=== PATIENT | female | born 1985 | race Caucasian/White ===

== ENCOUNTER 2021-12-30 10:12 | Emergency (ER) | payer OTHER, SELFPAY ==
--- NOTE | 2021-12-30 10:13 | ED.GENADULT ---
HPI - General Adult General Chief complaint: Neck Pain/Injury Stated complaint: Neck/Left Shoulder Pain Time Seen by Provider: 12/30/21 10:13 Source: patient Mode of arrival: ambulatory Limitations: no limitations History of Present Illness HPI narrative: 36-year-old female patient presents to the [facility] with complaints of neck and shoulder pain x5 days. Patient states she flew to [place] on Saturday to see some family and states that she was holding some bags and holding some luggage later on that evening noticed that her neck was little stiff and as the days went on stiffness is gotten increasingly worse. Patient states she has noticed that 800 mg of ibuprofen has worked better than the Tylenol and she tried some Epson salt warm baths and a little bit of heat and ice the area continues to have issues with range of motion of the neck and pain to the scapular area. Denies any specific injury that she is aware of. Denies any numbness or tingling down the upper extremities. Related Data Allergies Allergy/AdvReac Type Severity Reaction Status Date / Time No Known Allergies Allergy Verified 12/30/21 10:28 Review of Systems Review of Systems: CONSTITUTIONAL: Denies fever, chills, or sweats. EYES: Denies visual changes, redness, or discharge. ENT: Denies rhinorrhea, congestion, sore throat, or otalgia. CARDIOVASCULAR: Denies chest pain, palpitations, or edema. RESPIRATORY: Denies cough or dyspnea. GASTROINTESTINAL: Denies abdominal pain, nausea, vomiting, or diarrhea. GENITOURINARY: Denies dysuria or hematuria. SKIN: Denies rash or itching. MUSCULOSKELETAL: Denies back pain, joint pain, or myalgia. Positive neck and shoulder pain x5 days NEUROLOGIC: Denies headache, numbness, or weakness. PSYCHIATRIC: Denies anxiety or depression. PMFSH Comments At the time of my signature I agree with nursing past medical history, surgical, social, and family history. There is no relevant family history pertinent to the presenting complaint. Exam Narrative: GENERAL: Well-appearing, well-nourished, and in no acute distress. HEAD: Normocephalic, atraumatic. EYES: PERRLA and EOMI. ENT: Nares clear, no rhinorrhea or epistaxis. Mucous membranes moist. NECK: Supple, no lymphadenopathy. No surface trauma, soft tissue and muscle tenderness and spasm noted noted to palpation along the scapula area. Trachea midline. No subq emphysema or crepitus. No diogenes tenderness, step-offs or deformity to firm Palpation at posterior midline. FROM with limitation and pain with flexion, extension,Lateral bending, rotation, no pain with axial load. CHEST: Clear to auscultation. No respiratory distress. HEART: Regular rate and rhythm. No murmur heard. Normal peripheral pulses. ABDOMEN: Soft, nontender, nondistended, normal active bowel sounds. EXTREMITIES: Normal range of motion. No edema. SKIN: Warm, dry, no rash. NEURO: No focal deficits. Alert and oriented x3. Course Course Level of Care: Express Care Visit Vital Signs Vital signs: Vital Signs Temperature 37.1 C 12/30/21 10:20 Pulse Rate 81 12/30/21 10:20 Respiratory Rate 14 12/30/21 10:20 Blood Pressure 91/64 L 12/30/21 10:20 Pulse Oximetry 99 12/30/21 10:20 Temperature 37.1 C 12/30/21 10:20 Pulse Rate 81 12/30/21 10:20 Respiratory Rate 14 12/30/21 10:20 Blood Pressure 91/64 L 12/30/21 10:20 Pulse Oximetry 99 12/30/21 10:20 Vital signs reviewed Medical Decision Making Differential Diagnosis Differential Diagnosis: Differential diagnosis: Cervical spine injury, muscle strain, spasm, torticollis, ligament injury, fracture, subluxation. Discussed with patient that most likely she pulled a muscle now and appears that she has some muscle spasms along bilateral scapular areas. Can urged her to continue doing the 800 mg ibuprofen 2-3 times a day and I will also prescribe her a muscle relaxant. Encouraged her to do gentle stretching exercises, massage and heat to the area to hel
[2021-12-30 10:20] VITALS: BP 91/64; PULSE 81; RESP 14; TEMP 37.1; O2SAT 99
== END 2021-12-30 10:45 | disposition home or self-care (01) ==
PROVIDERS: Emergency Provider Nurse Practitioner Family; PCP Physician Assistant
DX: S16.1XXA Strain of muscle, fascia and tendon at neck level, initial encounter (principal); X50.1XXA Overexertion from prolonged static or awkward postures, initial encounter
CPT/HCPCS: 99213; G0463

== ENCOUNTER 2022-04-09 21:18 | Emergency (ER) | payer OTHER, SELFPAY ==
[2022-04-09 21:30] VITALS: BP 119/85; PULSE 107; RESP 18; TEMP 36.9; O2SAT 100
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
[2022-04-09 22:17] LABS: Basophils Absolute Auto 0.04 K/mm3 (0.00-0.10); Basophils Percent Auto 0.5 % (0.0-1.0); Eosinophils Absolute Auto 0.06 K/mm3 (0.02-0.50); Eosinophils Percent Auto 0.7 % (1.0-6.0); Hematocrit 36.6 % (35.0-49.0); Hemoglobin 12.1 g/dL (12.0-15.0); Immature Granulocyte Absolute 0.02 K/mm3 (0.00-0.00); Immature Granulocyte Percent A 0.2 % (0.0-0.0); Lymphocytes Absolute Auto 1.68 K/mm3 (1.10-4.50); Mean Corpuscular HGB Conc 33.1 g/dL (32.0-36.0); Mean Corpuscular Hemoglobin 33.4 pg (27.0-31.0); Mean Corpuscular Volume 101.1 fL (78.0-102.0); Mean Platelet Volume 8.8 fl (9.2-11.8); Monocytes Absolute Auto 0.58 K/mm3 (0.10-0.90); Monocytes Percent Auto 6.9 % (2.0-11.0); Neutrophils Percent Auto 71.7 % (50.0-70.0); Platelet Count Result 318 K/mm3 (150-420); Red Blood Count 3.62 M/mm3 (4.20-5.40); Red Cell Distribution Width 11.9 % (11.6-14.4); White Blood Count 8.4 K/mm3 (4.8-10.8)
[2022-04-09 22:22] LABS: Add Urine Microscopic? YES; Appearance Urine Clear (Clear); Bilirubin Urine Negative (Negative); Blood Urine Negative (Negative); Color Urine Light Yellow (Yellow); Glucose Urine UA Negative (Negative); Ketones Urine Negative (Negative); Leukocyte Esterase Ur Trace LEU/UL (Negative); Nitrate Urine Negative (Negative); Protein Urine Negative (Negative); Urobilinogen Urine 0.2 mg/dL (0.2-1.0); pH Urine 6.5 (5.0-8.0)
[2022-04-09 22:29] LABS: Pregnancy On Board Control Positive; Urine Pregnancy Test Negative
[2022-04-09 22:30] LABS: Bacteria Urine Trace /hpf; RBC Urine 0-2 /hpf (0-2); Squamous Epithelial Cell Urine Few /hpf (Few); WBC Urine 0-3 /hpf (0-3)
[2022-04-09 22:34] LABS: Amphetamine Screen Urine Positive (Negative); Barbiturate Screen Urine Negative (Negative); Benzodiazepines Screen Urine Negative (Negative); Cannabinoid Screen Urine Positive (Negative); Cocaine Screen Urine Positive (Negative); Methadone Screen Urine Negative (Negative); Opiate Screen Urine Negative (Negative); Phencyclidine Screen Urine Negative (Negative)
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
[2022-04-09 22:43] LABS: Alanine Aminotransferase 18 U/L (14-59); Albumin Level 3.9 g/dL (3.4-5.0); Alkaline Phosphatase 62 U/L (46-116); Anion Gap 9 mmol/L (8-16); Aspartate Amino Transferase 14 U/L (15-37); Bilirubin,Total 0.4 mg/dL (0.00-1.00); Blood Urea Nitrogen 11 mg/dL (7-18); Calcium 8.8 mg/dL (8.5-10.1); Carbon Dioxide 26 mmol/L (21-32); Chloride 102 mmol/L (98-108); Estimated CRCL calculation 57 ml/min; Estimated Glomerular Filt Rate > 60; Glucose 94 mg/dL (70-99); Osmolality Calculated 283 mOsm/kg (285-295); Potassium 3.7 mmol/L (3.5-5.1); Sodium 137 mmol/L (136-145); Thyroid Stimulating Hormone 1.62 uIU/mL (0.36-3.74); Total Protein 6.8 g/dL (6.4-8.2)
[2022-04-09 22:47] LABS: Acetaminophen < 2 ug/mL (10-30); Ethanol < 3 mg/dL (0-6)
[2022-04-09 22:54] LABS: SARS-CoV-2 RNA PCR Negative (Negative)
--- NOTE | 2022-04-09 23:08 | PC.NURSE ---
Pt is calm and cooperative, resting/dozing in chair and watching TV, pt under continuous observation via monitor and sitter protocol. Awaiting Mehran from [facility] for evaluation. Pt updated on POC.
--- NOTE | 2022-04-10 01:24 | PC.NURSE ---
Mehran from [facility] talking c pt for evaluation. Pt cooperative c care.
--- NOTE | 2022-04-10 02:23 | PC.NURSE ---
Safety plan discussed c pt per mental health counselor loni Laurent/adamaris instructions given for pt to f/u on o/p basis c her counselors, pt agreeable to POC.
[2022-04-10 02:30] VITALS: BP 110/74; PULSE 87; RESP 20; TEMP 36.4; O2SAT 100
== END 2022-04-10 02:48 | disposition home or self-care (01) ==
PROVIDERS: Emergency Provider Emergency Medicine
DX: F32.9 Major depressive disorder, single episode, unspecified (principal); F19.90 Other psychoactive substance use, unspecified, uncomplicated; Z20.822 Contact with and (suspected) exposure to COVID-19
CPT/HCPCS: 36415; 80053; 80307; 81001; 81025; 84443; 85025; 99284; C9803; U0003; U0005

== ENCOUNTER 2023-06-16 11:01 | Emergency (ER) | payer OTHER, SELFPAY ==
--- NOTE | ~2023-06-16 | XR_ITS ---
XR chest 2V DATE: 06/16/2023 11:27 INDICATION: Right chest pain radiating to right back. Shortness of breath. Fever. History of smoking. TECHNIQUE: 2 views COMPARISON: None FINDINGS: Normal heart size. No hilar or mediastinal enlargement. The lungs are hyperinflated but haylee ar of infiltrate or consolidation. No pleural effusion or pulmonary vascular congestion or pneumothor ax. Mild thoracic scoliosis. IMPRESSION: Bilateral hyperinflation; otherwise no active cardiopulmonary disease Reviewed, dictated and finalized at location A. IMPRESSION: Bilateral hyperinflation; otherwise no active cardiopulmonary disea se
[2023-06-16 11:01] VITALS: BP 114/81; PULSE 100; RESP 16; TEMP 36.5; O2SAT 99
--- NOTE | 2023-06-16 11:12 | ECG_ITS ---
Measurements Intervals [place] Rate: 88 P: -89 VA: 118 QRS: 65 QRSD: 94 T: 46 QT: 370 QTc: 450 Interpretive Statements ECTOPIC ATRIAL RHYTHM ABNORMAL ECG NO PREVIOUS ECG AVAILABLE FOR COMPARISON Electronically Signed On 06-17-2023 9:31:24 CDT by Dimitris Bell M.D.
--- NOTE | 2023-06-16 11:18 | ED.CHESTPAIN ---
HPI - Chest Pain General Chief Complaint: Chest Pain Stated Complaint: pain with breathing Time Seen by Provider: 06/16/23 11:12 Source: patient Mode of arrival: ambulatory Limitations: no limitations History of Present Illness HPI narrative: patient is a 37-year-old female with upper chest pain on the left and more so on the right for the past day. She has been having it on and off however for the past week. She has a plan to see her primary doctor in the next week. She was moving some lumbar yesterday and this appears to be worse after moving heavy lumber. Pain is on movement. No other chest pain symptoms. complaint: chest pain Onset (ago): day(s) Timing of current episode: constant, increasing and still present Prior episodes: Yes Onset: during exertion Pain location: left chest and right chest Pain radiation: none Severity: moderate Pain scale (0-10): 5 Quality: sharp Relieving factors: rest Exacerbating factors: movement Treatment prior to arrival: none Risk Factors Coronary artery disease risk factors: none Thoracic aortic dissection risk factors: none Related Data On Oral Contraceptives: No Allergies Allergy/AdvReac Type Severity Reaction Status Date / Time No Known Allergies Allergy Verified 12/30/21 10:28 Review of Systems Review of Systems: All systems reviewed & are unremarkable except as noted in HPI and below Constitutional: Constitutional: Reports no additional constitutional complaints Eyes: Eyes: Reports no additional eye complaints ENT: Reports system reviewed and no additional complaints, except as documented Cardiovascular: Cardiovascular: Reports no additional cardiovascular complaints Respiratory: Respiratory: Reports no additional respiratory complaints Gastrointestinal: Gastrointestinal: Reports no additional gastrointestinal complaints Genitourinary: Genitourinary: Reports no additional female genitourinary complaints Musculoskeletal: Musculoskeletal: Reports no additional musculoskeletal complaints Integumentary/Breasts: Skin/Breast: Reports system reviewed and no additional complaints, except as docu Neurologic: Reports system reviewed and no additional complaints, except as documented Psychiatric: Psychiatric: Reports no additional psychiatric complaints Endocrine: Endocrine: Reports no additional endocrine complaints Hematologic/Lymphatic: Hematologic/Lymphatic: Reports no additional hematologic/lymphatic complaints Allergic/Immunologic: Allergic/Immunologic: Reports no additional allergic/immunologic complaints [facility] Surgical History H/O dilation and curettage Social History Social History Tobacco type: e-cigarettes/vaping Substance use type: marijuana Exam Const: General: healthy appearing Nutritional Appearance: well nourished Orientation/consciousness: patient oriented x3 HENMT: Head: normal to inspection Ears: external ears normal Face/Nose/Sinus: Normal external nose present Eyes: Conjunctivae: conjunctivae normal Pupils: Equal, round and reactive pupils present EOM: EOMs intact bilaterally Neck: Neck: normal visual inspection Chest: Chest palpation & inspection: normal inspection of the chest Resp: Effort & Inspection: normal respiratory effort Auscultation: clear to auscultation bilaterally Cardio: Rate: regular rate Rhythm: regular rhythm Heart sounds: no murmurs GI: Inspection: non-distended GI Palp: Yes Soft to palpation, No Tenderness to palpation present (GI), No Guarding due to palpation present (GI) and No Rigid due to palpation : General: Yes bladder normal to palpation Back/Spine/Pelvis: Back: no CVA tenderness Skin: General skin exam: normal color Rashes: no rashes Wounds: no wounds Neuro: General: patient oriented x3 Cranial nerves: Yes Nystagmus not present Speech: normal speech Extre
[2023-06-16] MEDS: KETOROLAC (*BKC) 60 MG/2 ML VIAL IM (11:26)
[2023-06-16 11:35] LABS: Basophils Absolute Auto 0.02 K/mm3 (0.00-0.10); Basophils Percent Auto 0.2 % (0.0-1.0); Eosinophils Absolute Auto 0.07 K/mm3 (0.02-0.50); Eosinophils Percent Auto 0.9 % (1.0-6.0); Hematocrit 34.5 % (35.0-49.0); Immature Granulocyte Absolute 0.03 K/mm3 (0.00-0.00); Immature Granulocyte Percent A 0.4 % (0.0-0.0); Lymphocytes Absolute Auto 1.05 K/mm3 (1.10-4.50); Lymphocytes Percent Auto 13.1 % (18.0-42.0); Mean Corpuscular HGB Conc 31.9 g/dL (32.0-36.0); Mean Corpuscular Hemoglobin 32.5 pg (27.0-31.0); Mean Corpuscular Volume 102.1 fL (78.0-102.0); Mean Platelet Volume 8.4 fl (9.2-11.8); Monocytes Percent Auto 7.5 % (2.0-11.0); Neutrophils Absolute Auto 6.3 K/mm3 (1.7-7.2); Neutrophils Percent Auto 77.9 % (50.0-70.0); Platelet Count Result 415 K/mm3 (150-420); Red Blood Count 3.38 M/mm3 (4.20-5.40); Red Cell Distribution Width 12.3 % (11.6-14.4)
[2023-06-16 11:54] LABS: Alanine Aminotransferase 11 U/L (14-59); Albumin Level 3.4 g/dL (3.4-5.0); Alkaline Phosphatase 90 U/L (46-116); Aspartate Amino Transferase < 10 U/L (15-37); Bilirubin,Total 0.3 mg/dL (0.00-1.00); Blood Urea Nitrogen 9 mg/dL (7-18); Carbon Dioxide 26 mmol/L (21-32); Chloride 103 mmol/L (98-108); Estimated CRCL calculation 72 ml/min; Estimated Glomerular Filt Rate > 60; Glucose 88 mg/dL (70-99); Lipase 72 U/L (16-77); Potassium 3.3 mmol/L (3.5-5.1); Total Protein 7.3 g/dL (6.4-8.2)
[2023-06-16 11:57] LABS: Troponin I < 4.0 ng/L (0.00-60.4)
[2023-06-16 12:00] VITALS: BP 115/78; PULSE 92; RESP 18; O2SAT 100
[2023-06-16 12:27] LABS: Anion Gap 9 mmol/L (8-16); Osmolality Calculated 283 mOsm/kg (285-295); Sodium 138 mmol/L (136-145)
--- NOTE | 2023-06-16 12:39 | PC.NURSE ---
Pt up to bathroom for urine specimen.
[2023-06-16 13:06] LABS: Bilirubin Urine Negative (Negative); Blood Urine 1+ (Negative); Color Urine Light Yellow (Yellow); Glucose Urine UA Negative (Negative); Ketones Urine Negative (Negative); Leukocyte Esterase Ur 1+ LEU/UL (Negative); Nitrate Urine Negative (Negative); Protein Urine Negative (Negative); Specific Grav Ur 1.025 (1.010-1.020); Urobilinogen Urine 0.2 mg/dL (0.2-1.0)
[2023-06-16] MEDS: POTASSIUM CHLORIDE 20 MEQ ER TABLET PO (13:08)
[2023-06-16 13:13] LABS: Add Urine Microscopic? YES; Amorphous Sediment Urine Few; Appearance Urine Slightly Cloudy (Clear); Bacteria Urine 2+ /hpf; Squamous Epithelial Cell Urine Many /hpf (Few)
[2023-06-16 13:14] LABS: Mucus Urine Heavy /lpf; Pregnancy On Board Control Positive; Urine Pregnancy Test Negative
[2023-06-16 13:34] VITALS: BP 112/80; PULSE 91; RESP 16; O2SAT 98
--- NOTE | 2023-06-18 12:26 | PC.NURSE ---
FINAL URINE CULTURE REPORT: NO GROWTH , NO FURTHER ACTION OR TREATMENT NEEDED.
== END 2023-06-16 13:36 | disposition home or self-care (01) ==
PROVIDERS: Emergency Provider Emergency Medicine; PCP Physician Assistant
DX: S29.011A Strain of muscle and tendon of front wall of thorax, initial encounter (principal); N30.01 Acute cystitis with hematuria; X50.0XXA Overexertion from strenuous movement or load, initial encounter; F17.290 Nicotine dependence, other tobacco product, uncomplicated; F12.90 Cannabis use, unspecified, uncomplicated
CPT/HCPCS: 36415; 71046; 80053; 81001; 81025; 83690; 84484; 85025; 87086; 87088; 93005; 96372; 99284; A9270; J1885

== ENCOUNTER 2024-06-20 17:42 | Emergency (ER) | payer MEDICAID, SELFPAY ==
--- NOTE | ~2024-06-20 | CT_ITS ---
EXAMINATION: CT abdomen pelvis w con DATE: 06/20/2024 19:07 INDICATION: Periumbilical abdominal pain/nausea/vomiting x2 days TECHNIQUE: Computed tomography (CT) of the abdomen and pelvis was performed with 100 mL Omnipaque-350 intravenous contrast. Automated exposure control and iterative reconstruction technique were employe d. The dose-length product was 159.93 mGy-cm. COMPARISON: None. FINDINGS: Lower thorax: Unremarkable Liver: Right lobe cyst. Subcentimeter right lobe hypodensity too small to characterize but likely rep resents a cyst or hemangioma. Biliary/Gallbladder: Gallbladder is normal. No bile duct dilation. Pancreas: No mass or duct dilation. Spleen: Normal. Adrenals:No mass. Kidneys: No suspicious mass, obstructing stone, or hydronephrosis. GI tract: No small or large bowel dilation. Appendix not confidently visualized due to the paucity of abdominal fat. No right lower quadrant inflammatory change to suggest appendicitis. Mesentery/Peritoneum: No ascites, mass, or free air. Retroperitoneum: No mass. Minimal atherosclerotic abdominal aortic and/or arterial calcifications. Pelvis: Pelvic organs are within normal limits. Retroverted uterus. 2.1 cm simple appearing right ova concha cyst. Soft Tissues: Soft tissues and body wall unremarkable. Bones: No acute osseous finding. IMPRESSION: No acute abdominopelvic process detected Reviewed, dictated and finalized at location K.
[2024-06-20 17:44] VITALS: BP 143/97; PULSE 87; RESP 18; TEMP 36.9; O2SAT 99
--- NOTE | 2024-06-20 17:54 | ED.ABDPAIN ---
HPI - Abdominal Pain General Chief Complaint: Abdominal Pain Stated Complaint: abdominal pain Time Seen by Provider: 06/20/24 17:43 Source: patient Mode of arrival: ambulatory Limitations: no limitations History of Present Illness HPI narrative: This is a 38-year-old female with no significant past medical history, who presents to the emergency department complaining of abdominal pain for the past week. She described pain as dull, rated 8/10 without radiation and now worsening. This is associated with nausea, though no vomiting or diarrhea. She states she has passed gas and stool without difficulty. The patient states she recently began having brownish vaginal discharge and spotting without other abnormal discharge. She denies recent trauma, fevers, chills, abnormal bleeding, chest pain, shortness of breath and has no other complaints at this time. Related Data Allergies Allergy/AdvReac Type Severity Reaction Status Date / Time No Known Allergies Allergy Verified 06/20/24 17:42 Review of Systems Review of Systems: All systems reviewed & are unremarkable except as noted in HPI and below PMFSH Past Medical History Medical History (Updated 06/20/24 @ 19:23 by Marco Antonio Lizama MD) PTSD (post-traumatic stress disorder) Surgical History Surgical History H/O dilation and curettage Social History Social History (Updated 06/20/24 @ 17:56 by Marco Antonio Lizama MD) Tobacco type: e-cigarettes/vaping Alcohol intake: current Substance use type: marijuana Exam Narrative: GENERAL: Well-developed, well-nourished, and in no acute distress. Appears uncomfortable HEAD: Normocephalic, atraumatic. EYES: PERRLA and EOMI. ENT: Nares clear, no rhinorrhea or epistaxis. Mucous membranes moist. Oropharynx without tonsillar hypertrophy exudate or other lesions. CHEST: Clear to auscultation. No respiratory distress. No wheezes rales or rhonchi HEART: Regular rate and rhythm. No murmur heard. Normal peripheral pulses. ABDOMEN: Soft, tender to palpation in the periumbilical and suprapubic regions, without rebound or guarding, nondistended, normal active bowel sounds. mild right CVA tenderness to palpation, no left CVA tenderness EXTREMITIES: Normal range of motion. No edema. SKIN: Warm, dry, no rash. NEURO: Alert and oriented x3. No focal deficit. Moving all 4 limbs spontaneously PSYCH: Normal mood and affect. Course Course Emergency Course: 18:43 - CBC demonstrates mild anemia with hemoglobin of 11.9 which appears to be the patient's baseline, but is otherwise unremarkable. chemistries unremarkable. Urinalysis demonstrates 3+ blood with 21-50 RBCs but is otherwise unremarkable, including the absence of bacteria. Urine test negative. The patient received half of the ordered morphine with appropriate affect. CT abdomen pelvis pending. Vital Signs Vital signs: Vital Signs Temperature 98.4 F 06/20/24 17:44 Pulse Rate 87 06/20/24 17:44 Respiratory Rate 18 06/20/24 17:44 Blood Pressure 143/97 H 06/20/24 17:44 Pulse Oximetry 99 06/20/24 17:44 Oxygen Delivery Room Air 06/20/24 17:44 Temperature 98.4 F 06/20/24 17:44 Pulse Rate 75 06/20/24 18:30 Respiratory Rate 17 06/20/24 18:30 Blood Pressure 161/108 H 06/20/24 18:30 Pulse Oximetry 99 06/20/24 18:30 Oxygen Delivery Room Air 06/20/24 18:30 MDM - Abdominal Pain MDM Narrative Medical decision making narrative: plan: Imaging, pain control, test, labs, IV fluids, antiemetics, reassess Differential Diagnosis Differential diagnosis: Likely acute appendicitis, calculus of kidney, diverticulitis, gastroenteritis, pancreatitis, small bowel obstruction and other ( ectopic , PID, mittelschmerz, UTI, metabolic abnormality, ovarian torsion, other) Lab Data 06/20/24 18:14 06/20/24 18:14 Labs: Lab Results 06/20/24 Range
[2024-06-20 18:05] VITALS: BP 145/103; PULSE 90; RESP 17; O2SAT 100
--- NOTE | 2024-06-20 18:06 | PC.NURSE ---
Patient ambulatory to and from bathroom with steady gait.
[2024-06-20 18:18] LABS: Basophils Absolute Auto 0.02 K/mm3 (0.00-0.10); Basophils Percent Auto 0.3 % (0.0-1.0); Eosinophils Absolute Auto 0.08 K/mm3 (0.02-0.50); Eosinophils Percent Auto 1.2 % (1.0-6.0); Hemoglobin 11.9 g/dL (12.0-15.0); Immature Granulocyte Absolute 0.01 K/mm3 (0.00-0.00); Immature Granulocyte Percent A 0.1 % (0.0-0.0); Lymphocytes Absolute Auto 1.68 K/mm3 (1.10-4.50); Lymphocytes Percent Auto 25.1 % (18.0-42.0); Mean Corpuscular HGB Conc 33.1 g/dL (32-36); Mean Corpuscular Hemoglobin 32.5 pg (27.0-31.0); Mean Corpuscular Volume 98.4 fL (78.0-102.0); Mean Platelet Volume 8.5 fl (9.2-11.8); Monocytes Absolute Auto 0.63 K/mm3 (0.10-0.90); Monocytes Percent Auto 9.4 % (2.0-11.0); Neutrophils Absolute Auto 4.26 K/mm3 (1.70-7.20); Neutrophils Percent Auto 63.9 % (50.0-70.0); Platelet Count Result 334 K/mm3 (150-420); Red Blood Count 3.66 M/mm3 (4.20-5.40); Red Cell Distribution Width 12.2 % (11.6-14.4); White Blood Count 6.7 K/mm3 (4.8-10.8)
[2024-06-20 18:20] LABS: Add Urine Microscopic? YES; Bilirubin Urine Negative (Negative); Blood Urine 3+ (Negative); Color Urine Light Yellow (Yellow); Glucose Urine UA Negative (Negative); Ketones Urine Negative (Negative); Leukocyte Esterase Ur Negative LEU/UL (Negative); Nitrate Urine Negative (Negative); Protein Urine Negative (Negative); Specific Grav Ur 1.015 (1.010-1.020); Urobilinogen Urine 0.2 mg/dL (0.2-1.0)
[2024-06-20 18:26] LABS: Appearance Urine Sl Cloudy (Clear); RBC Urine 21-50 /hpf (0-2); Squamous Epithelial Cell Urine Occasional /hpf (Few)
[2024-06-20 18:27] LABS: Mucus Urine Heavy /lpf; Pregnancy On Board Control Positive; Urine Pregnancy Test Negative
[2024-06-20 18:30] VITALS: BP 161/108; PULSE 75; RESP 17; O2SAT 99
[2024-06-20 18:33] LABS: Alanine Aminotransferase 15 U/L (14-59); Albumin Level 3.6 g/dL (3.4-5.0); Alkaline Phosphatase 86 U/L (46-116); Anion Gap 9 mmol/L (4-12); Aspartate Amino Transferase < 10 U/L (15-37); Bilirubin,Total 0.2 mg/dL (0.00-1.00); Blood Urea Nitrogen 10 mg/dL (7-18); Carbon Dioxide 28 mmol/L (21-32); Chloride 100 mmol/L (98-108); Estimated CRCL calculation 62 ml/min; Estimated Glomerular Filt Rate > 60; Glucose 99 mg/dL (70-99); Lipase 22 U/L (16-77); Osmolality Calculated 283 mOsm/kg (285-295); Potassium 3.9 mmol/L (3.5-5.1); Sodium 137 mmol/L (136-145)
[2024-06-20] MEDS: SODIUM CHLORIDE 0.9% IV 1,000 ML 999 ML IV CONT (18:33)
[2024-06-20] MEDS: ONDANSETRON INJ 4 MG/2 ML VIAL IV PUSH (18:34)
[2024-06-20] MEDS: MORPHINE SULFATE (*CRX) 4 MG/ML INJ IV PUSH (18:37)
--- NOTE | 2024-06-20 18:55 | PC.NURSE ---
Patient taken down to CT
[2024-06-20 19:34] VITALS: BP 143/89; PULSE 84; RESP 18; TEMP 36.6; O2SAT 100
[2024-06-20] MEDS: KETOROLAC 30 MG/ML VIAL (*BKC) IV PUSH (19:35)
== END 2024-06-20 19:50 | disposition home or self-care (01) ==
PROVIDERS: Emergency Provider Preventive Medicine Aerospace Medicine; PCP Physician Assistant
DX: R10.33 Periumbilical pain (principal); R11.0 Nausea
CPT/HCPCS: 36415; 74177; 80053; 81001; 81025; 83690; 85025; 96361; 96374; 96375; 99284; J1885; J2270; J2405; J7030; Q9967